=== PATIENT | male | born 1955 | race Caucasian/White ===

== ENCOUNTER 2017-12-22 20:50 | Inpatient (IN) | payer OTHER ==
[~2017-12-22] VITALS: Ht 172.7 cm; Wt 110.8 kg
[~2017-12-22 20:50] MED LIST: LAC PO; LEVAQUIN750 MG PO; PROAIR HFA0.09 MG/A1 INH; PROCARDIA XL90 MG; PULMICORT180 MCG/Ac INH; ZOC20 PO
[2017-12-22 21:04] VITALS: Ht 172.7 cm; Wt 110.8 kg
[2017-12-22 22:18] LABS: BASOPHIL % 0.3 % (0-2); PLATELET COUNT 315 x10^3mcL (130-400); RED CELL DISTRIBUTION WIDTH 13.6 % (11.5-14.5)
[2017-12-22 22:29] LABS: microscopic required? NO
[2017-12-22 22:32] LABS: CALCIUM 8.4 mg/dL (8.5-10.1); CARBON DIOXIDE 27.2 mmol/L (21-32); CHLORIDE SERUM 99 mmol/L (98-107); CREATININE SERUM 0.9 mg/dL (0.7-1.3); GFR1 > 60 mL/min; GLUCOSE SERUM 102 mg/dL (74-106); POTASSIUM SERUM 3.6 mmol/L (3.5-5.1); SODIUM SERUM 139 mmol/L (136-145)
[2017-12-22 22:45] LABS: ALBUMIN 3.6 g/dL (3.4-5.0); ALKALINE PHOSPHATASE 91 U/L (46-116); ALT/SGPT 19 U/L (16-63); AST/SGOT 24 U/L (15-37); BILIRUBIN TOTAL 0.36 mg/dL (0.20-1.00); FREE T4 1.43 ng/dL (0.76-1.46); MAGNESIUM 2.1 mg/dL (1.8-2.4); TOTAL PROTEIN, SERUM 7.5 g/dL (6.4-8.2)
[2017-12-22 23:01] LABS: urine erythrocyte NEGATIVE (NEGATIVE)
[2017-12-22 23:15] LABS: AMPHETAMINE QUAL UR NONE DETECTED (See below)
[2017-12-23 01:49] VITALS: BP 142/81
[2017-12-23 02:00] LABS: CHOLESTEROL/HDL RATIO 5.7
[2017-12-23 05:54] VITALS: BP 111/67
[2017-12-23 09:26] VITALS: BP 126/75
[2017-12-23 12:20] VITALS: BP 128/73
[2017-12-23] MEDS ORDERED: TOPROL XL25 MG PO (14:49)
[2017-12-23 15:22] VITALS: BP 128/73
== END 2017-12-23 16:06 | disposition home or self-care (01) | DRG 880 ==
LOC: ED 20:50 → DU 12-23 01:07
PROVIDERS: Emergency Medicine; Family Medicine
DX: F41.9 Anxiety disorder, unspecified (principal); I24.9 Acute ischemic heart disease, unspecified; I49.3 Ventricular premature depolarization; I10 Essential (primary) hypertension; E78.5 Hyperlipidemia, unspecified; E83.51 Hypocalcemia; M48.00 Spinal stenosis, site unspecified; N40.0 Benign prostatic hyperplasia without lower urinary tract symptoms; Z68.37 Body mass index [BMI] 37.0-37.9, adult; Z87.891 Personal history of nicotine dependence
CPT/HCPCS: 83880; 84439; J7030

== ENCOUNTER 2018-01-22 20:13 | Inpatient (IN) | payer OTHER ==
[~2018-01-22] VITALS: Ht 172.7 cm; Wt 113.9 kg
[~2018-01-22 20:13] MED LIST changes: +TOPROL XL25 MG PO
[2018-01-22 20:17] VITALS: Ht 172.7 cm; Wt 113.9 kg
[2018-01-22 20:41] LABS: BASOPHIL % 1.1 % (0-2); PLATELET COUNT 288 x10^3mcL (130-400); RED CELL DISTRIBUTION WIDTH 14.1 % (11.5-14.5)
[2018-01-22 20:49] LABS: CARBON DIOXIDE 28.9 mmol/L (21-32); CHLORIDE SERUM 102 mmol/L (98-107); CREATININE SERUM 0.9 mg/dL (0.7-1.3); GFR1 > 60 mL/min; GLUCOSE SERUM 119 mg/dL (74-106); POTASSIUM SERUM 3.6 mmol/L (3.5-5.1); SODIUM SERUM 140 mmol/L (136-145)
[2018-01-22 20:54] LABS: ALBUMIN 3.7 g/dL (3.4-5.0); ALKALINE PHOSPHATASE 100 U/L (46-116); ALT/SGPT 32 U/L (16-63); AST/SGOT 20 U/L (15-37); BILIRUBIN TOTAL 0.3 mg/dL (0.20-1.00); TOTAL PROTEIN, SERUM 7.7 g/dL (6.4-8.2)
[2018-01-22] MEDS ORDERED: ASPIR 8181 MG PO (22:10)
[2018-01-22] MEDS ORDERED: FINASTERIDE5 M1 (22:11)
[2018-01-22] MEDS ORDERED: NOR10T PO (22:12)
[2018-01-22] MEDS ORDERED: LOVASTATIN40 MG (22:12)
[2018-01-22] MEDS ORDERED: BACLOFEN10 MG (22:13)
[2018-01-22] MEDS ORDERED: NITROSTAT0.4 MG (22:13)
[2018-01-22] MEDS ORDERED: GABAPENTIN400 M1 (22:13)
[2018-01-22 23:01] LABS: CHOLESTEROL/HDL RATIO 4.9; PHOSPHOROUS 3.6 mg/dL (2.5-4.9)
[2018-01-22 23:22] LABS: FREE T4 1.05 ng/dL (0.76-1.46); FREE THYROXINE INDEX 2.5 ug/dL (1.4-4.5); T4(THYROXINE) 6.8 ug/dL (4.7-13.3)
[2018-01-22 23:32] VITALS: BP 135/78
[2018-01-23 00:17] LABS: T3 TOTAL 0.99 ng/mL
[2018-01-23 01:20] LABS: microscopic required? NO
[2018-01-23 01:53] LABS: urine erythrocyte NEGATIVE (NEGATIVE)
[2018-01-23 02:08] LABS: AMPHETAMINE QUAL UR NONE DETECTED (See below)
[2018-01-23 05:27] VITALS: BP 113/70; BP 140/52
[2018-01-23 06:19] LABS: CALCIUM 8.4 mg/dL (8.5-10.1); CARBON DIOXIDE 28.9 mmol/L (21-32); CHLORIDE SERUM 105 mmol/L (98-107); CREATININE SERUM 0.7 mg/dL (0.7-1.3); GFR1 > 60 mL/min; GLUCOSE SERUM 107 mg/dL (74-106); MAGNESIUM 2.1 mg/dL (1.8-2.4); PHOSPHOROUS 3.7 mg/dL (2.5-4.9); POTASSIUM SERUM 3.7 mmol/L (3.5-5.1); SODIUM SERUM 141 mmol/L (136-145)
[2018-01-23 06:57] LABS: BASOPHIL % 0.2 % (0-2); PLATELET COUNT 268 x10^3mcL (130-400); RED CELL DISTRIBUTION WIDTH 14.3 % (11.5-14.5)
[2018-01-23 09:03] VITALS: BP 125/68
[2018-01-23 11:19] VITALS: BP 125/68
[2018-01-23 12:19] VITALS: BP 135/76
[2018-01-23] MEDS ORDERED: PROS5 PO (13:26)
[2018-01-23] MEDS ORDERED: FLO4 PO (13:27)
== END 2018-01-23 16:59 | disposition home or self-care (01) | DRG 206 ==
LOC: ED 20:13 → DU 21:57 → ED 22:30 → DU 22:50
PROVIDERS: Emergency Medicine; General Practice
DX: M94.0 Chondrocostal junction syndrome [Tietze] (principal); K21.9 Gastro-esophageal reflux disease without esophagitis; I10 Essential (primary) hypertension; R73.03 Prediabetes; E78.5 Hyperlipidemia, unspecified; N40.0 Benign prostatic hyperplasia without lower urinary tract symptoms; Z68.37 Body mass index [BMI] 37.0-37.9, adult; Z79.82 Long term (current) use of aspirin; Z87.891 Personal history of nicotine dependence
CPT/HCPCS: 83880; 84439; J7030; Q0092

== ENCOUNTER 2018-10-20 19:54 | Inpatient (IN) | payer OTHER ==
[~2018-10-20] VITALS: Ht 172.7 cm; Wt 113.0 kg
[~2018-10-20 19:54] MED LIST changes: +ASPIR 8181 MG PO; +BACLOFEN10 MG; +FINASTERIDE5 M1; +FLO4 PO; +GABAPENTIN400 M1; +LOVASTATIN40 MG; +NITROSTAT0.4 MG; +NOR10T PO; +PROS5 PO
--- NOTE | 2018-10-20 19:58 | NUR ---
NO ANS IN THE LOBBY.
[2018-10-20 20:03] VITALS: Ht 172.7 cm; Wt 113.0 kg
--- NOTE | 2018-10-20 20:06 | NUR ---
EKG IN PROGRESS IN TRIAGE.
[2018-10-20 20:36] LABS: BASOPHIL % 0.4 % (0-2); PLATELET COUNT 290 x10^3mcL (130-400); RED CELL DISTRIBUTION WIDTH 14.1 % (11.5-14.5)
[2018-10-20 20:45] LABS: CALCIUM 9.2 mg/dL (8.5-10.1); CARBON DIOXIDE 30.5 mmol/L (21-32); CHLORIDE SERUM 103 mmol/L (98-107); GFR1 > 60 mL/min; GLUCOSE SERUM 132 mg/dL (74-106); POTASSIUM SERUM 3.7 mmol/L (3.5-5.1); SODIUM SERUM 141 mmol/L (136-145)
[2018-10-20 20:52] LABS: ALKALINE PHOSPHATASE 110 U/L (46-116); ALT/SGPT 136 U/L (16-63); AST/SGOT 177 U/L (15-37); BILIRUBIN TOTAL 0.7 mg/dL (0.20-1.00); TOTAL PROTEIN, SERUM 7.8 g/dL (6.4-8.2)
--- NOTE | 2018-10-20 22:01 | NUR ---
PER PT HE WAS HAVING CHEST PRESSURE AROUND 1500. PT STS THAT THE PRESSURE CHEST PAIN RADIATES TO HIS LEFT ARM. PT STS THAT HE THEN TOOK AN 81MG ASPRIN AND NITRO 4MG WHEN HE FELT THIS PAIN AND "I FELT BETTER". PT STS THAT HE IS ALSO HAVING A PRESURE HEADACHE. PT DENIES ANY ABDOMINAL PAIN AND NO NAUSEA. PT STS THAT HE DOES HAVE A STENT PLACED. PT IS ALERT AND ORIENTED, SPEAKING IN CLEAR AND FULL SENTENCES. PT STS THAT HE NO LONGER HAS THE CHEST PAIN. RESP E/U. DR. GREER AT BEDSIDE. VSS. WILL CONTINUE TO MONITOR.
--- NOTE | 2018-10-20 22:25 | NUR ---
PT PLACED ON FULL CM.
[2018-10-20 23:23] LABS: microscopic required? NO
--- NOTE | 2018-10-20 23:23 | NUR ---
REPORT GIVEN TO GET TO ASSUME CARE OF PT.
[2018-10-20] MEDS ORDERED: PLA75 (23:36)
[2018-10-20 23:40] LABS: UA SPECIFIC GRAVITY 1.015 (1.005-1.035); urine erythrocyte NEGATIVE (NEGATIVE)
[2018-10-20 23:41] LABS: CHOLESTEROL/HDL RATIO 4.1; MAGNESIUM 2.1 mg/dL (1.8-2.4); PHOSPHOROUS 3.8 mg/dL (2.5-4.9)
[2018-10-21 00:10] VITALS: BP 136/73
--- NOTE | 2018-10-21 00:10 | NUR ---
PT TRANSFERRED TO TELE BED 220B ON LEAD INGOT MOLDER WITH MYSELF, CORNELIA BERNAL AND EMT GENE AT PT SIDE. PT AMBUALTED TO [facility] WITH STEADY GAIT. PT A&OX4,NO ACUTE DISTRESS NTOED, RESP EVEN AND UNLABORED. RN CEDRICK AT PT SIDE TO ASSUME CARE OF PT.
[2018-10-21 00:14] LABS: AMPHETAMINE QUAL UR NONE DETECTED (See below)
--- NOTE | 2018-10-21 00:17 | NUR ---
RECEIVED PT FROM ER VIA MANI ACCOMPANIED WITH NURSE AND EMT, PT SEEN, ALERT AND ORIENTED X 4 AND VERY VERBALLY RESPONSIVE, DENIES HEADACHE OR DIZZINESS, BREATHING EVEN AND UNLABORED, LUNG SOUNDS CLEAR, ON ROOM AIR WITH SPO2:97%, NO RESP DISTRESS NOTED, ON TELE#23 NSR WITH BBB, DENIES CHEST PAIN UPON ADMISSION, IVF INFUSING WELL TO RFA, MILD GENERALIZED WEAKNESS, BASELINE AT HOME USES CANE, ABD ROUND WITH ACTIVE BS, NO BM AT THIS TIME, DENIES ABD PAIN, DENIES ANY PROBLEM WITH VOIDING, NO DISTRESS NOTED, WILL KEEP TO MONITOR.
--- NOTE | 2018-10-21 03:19 | NUR ---
ROUNDS MADE. PT RESTING. BREATHING EVEN AND UNLABORED. NO SIGNS OF DISTRESS NOTED. CALL BUTTON WITHIN REACH. SAFETY PRECAUTIONS IN PLACE. WILL CONTINUE TO MONITOR.
--- NOTE | 2018-10-21 06:14 | NUR ---
PT SLEPT MOST OF THE NIGHT WITH NO SIGNS OF DISTRESS. BREATHING EVEN AND UNLABORED. PT DENIES ANY CHEST PAIN OR PRESSURE. IV PATENT, INFUSING WELL WITH NO SIGNS OF INFILTRATION. NO SIGNS OF DISTRESS. CALL BUTTON WITHIN REACH. SAFETY PRECAUTIONS IN PLACE. WILL CONTINUE TO MONITOR AND ENDORSE CARE TO DAY SHIFT RN.
[2018-10-21 06:29] LABS: BASOPHIL % 0.1 % (0-2); PLATELET COUNT 251 x10^3mcL (130-400); RED CELL DISTRIBUTION WIDTH 13.8 % (11.5-14.5)
[2018-10-21 06:33] VITALS: BP 126/71
[2018-10-21 06:58] LABS: CARBON DIOXIDE 27.6 mmol/L (21-32); CHLORIDE SERUM 105 mmol/L (98-107); CREATININE SERUM 0.8 mg/dL (0.7-1.3); GFR1 > 60 mL/min; GLUCOSE SERUM 102 mg/dL (74-106); MAGNESIUM 2.3 mg/dL (1.8-2.4); PHOSPHOROUS 3.4 mg/dL (2.5-4.9); POTASSIUM SERUM 3.8 mmol/L (3.5-5.1); SODIUM SERUM 143 mmol/L (136-145)
--- NOTE | 2018-10-21 07:28 | NUR ---
PT AWAKE, DENIES ANY PAIN. NO SIGSN OF DISTRESS NOTED. ENDORSED CARE TO DAY SHIFT RN, ALL QUESTIONS ADDRESSED.
[2018-10-21 09:34] VITALS: BP 130/71
--- NOTE | 2018-10-21 11:39 | NUR ---
DENIES ANY CHEST PAINS.
[2018-10-21 12:37] VITALS: BP 134/84
--- NOTE | 2018-10-21 15:25 | NUR ---
DENIES ANY CHEST PAINS. TOPROL DOSE FOR TODAY GIVEN.
[2018-10-21 16:20] VITALS: BP 135/63
[2018-10-21 17:24] VITALS: BP 135/63
--- NOTE | 2018-10-21 18:02 | NUR ---
DISCHARGE TEACHINGS DONE. HEP LOCK AND TELE DISCONTINUED. NO CHEST PAIN. NOT IN ANY DISTRESS. PATIENT LEFT UNIT AT 1754 WITHOUT WAITING FOR ESCORT.
== END 2018-10-21 18:05 | disposition home or self-care (01) | DRG 303 ==
LOC: ED 19:54 → DU 22:35 → MU 10-21 17:00
PROVIDERS: ADMIT Internal Medicine
DX: I25.118 Atherosclerotic heart disease of native coronary artery with other forms of angina pectoris (principal); E78.5 Hyperlipidemia, unspecified; E66.9 Obesity, unspecified; Z68.37 Body mass index [BMI] 37.0-37.9, adult; Z95.5 Presence of coronary angioplasty implant and graft; Z87.891 Personal history of nicotine dependence; Z79.82 Long term (current) use of aspirin
CPT/HCPCS: G0378; J7030